=== PATIENT | female | born 1960 | race American Indian/Alaskan Native ===

== ENCOUNTER 2016-12-20 12:08 | Inpatient (IN) | payer OTHER ==
[2016-12-20] MEDS ORDERED: TYLENOL ONE (12:24)
[2016-12-20] MEDS ORDERED: TYLENOL PO ONE (12:27)
[2016-12-20 14:23] LABS: Basophils % (Auto) 0.4 % (0.0-1.8); Eosinophils % (Auto) 0.1 % (0.0-4.3); Hematocrit 40.2 % (30.3-42.9); Hemoglobin 13.1 gm/dl (10.1-14.3); Mean Corpuscular HGB Conc 33 % (30-34); Mean Corpuscular Hemoglobin 30 pg (28-32); Mean Corpuscular Volume 92 fl (79-97); Platelet Count 380 K/mm3 (140-440); Red Blood Count 4.37 M/mm3 (3.65-5.03); Red Cell Distribution Width 13.6 % (13.2-15.2); White Blood Count 13.9 K/mm3 (4.5-11.0)
[2016-12-20 14:46] LABS: Bilirubin,Urine NEG (Negative); Blood,Urine NEG (Negative); Ketones,Urine TR mg/dL (Negative); Leukocyte Esterase,Urine NEG (Negative); Mucus,Urine FEW /HPF; Nitrite,Urine NEG (Negative); Protein,Urine <15 mg/dL mg/dL (Negative); Urobilinogen,Urine < 2.0 mg/dL (<2.0)
[2016-12-20 16:14] LABS: Alanine Aminotransferase 34 units/L (7-56); Albumin 4.5 g/dL (3.9-5); Albumin/Globulin Ratio 1.3 %; Alkaline Phosphatase 112 units/L (35-129); Anion Gap 18 mmol/L; BUN/Creatinine Ratio 12.85; Bilirubin,Total 0.5 mg/dL (0.1-1.2); Blood Urea Nitrogen 9 mg/dL (7-17); Carbon Dioxide 27 mmol/L (22-30); Chloride 98.3 mmol/L (98-107); Glucose 185 mg/dL (65-100); Lipase 15 units/L (13-60); Potassium 4.4 mmol/L (3.6-5.0); Sodium 139 mmol/L (137-145); Total Protein 7.9 g/dL (6.3-8.2)
[2016-12-20] MEDS ORDERED: ZOFRAN ODT ONE (17:29)
[2016-12-20] MEDS ORDERED: ZOFRAN ODT PO ONE (17:34)
[2016-12-20] MEDS ORDERED: NACL 0.9% 1000 ML 1,000 ML IV ONE (23:11)
[2016-12-20] MEDS ORDERED: MORPHINE IV ONE (23:11)
[2016-12-20] MEDS ORDERED: ZOFRAN IV ONE (23:11)
--- NOTE | 2016-12-20 23:40 | Emergency Department Report ---
ED Abdominal Pain HPI - General Chief Complaint: Abdominal Pain Stated Complaint: ABD PAIN Time Seen by Provider: 12/20/16 23:02 Source: patient Mode of arrival: Ambulatory Limitations: No Limitations - History of Present Illness Initial Comments: 56 yo female with a past medical history of asthma, diabetes, previous hysterectomy, appendectomy, and vessel injury during laparoscopic surgery presents to the hospital complaints of abdominal pain since this morning. Pain is across the mid abdomen, intubating, squeezing in nature. Worse palpation pain alleviating factors. 3 to 4 episodes of vomiting today. No diarrhea, melena, hematochezia, or hematemesis. No complaints of fever, dysuria, or hematuria. Severity scale (0 -10): 9 - Related Data Home Medications Medication Instructions Recorded Confirmed Last Taken No Known Home Medications [No 12/20/16 12/20/16 Unknown Reported Home Medications] Allergies Allergy/AdvReac Type Severity Reaction Status Date / Time acetaminophen [From Percocet] Allergy Hives Verified 12/20/16 12:21 amoxicillin trihydrate Allergy Hives Verified 12/20/16 12:21 [From Augmentin] aspirin [From Percodan] Allergy Hives Verified 12/20/16 12:21 oxycodone HCl [From Percocet] Allergy Hives Verified 12/20/16 12:21 oxycodone terephthalate Allergy Hives Verified 12/20/16 12:21 [From Percodan] potassium clavulanate Allergy Hives Verified 12/20/16 12:21 [From Augmentin] ED Review of Systems ROS: Stated complaint: ABD PAIN Other details as noted in HPI Comment: All other systems reviewed and negative Other: Constitutional: No fevers chills Eyes: No eye pain visual changes ENT: No ear pain or throat pain Neck: Denies pain Respiratory: Denies cough wheezing shortness of breath a Cardiovascular: Denies chest pain, palpitations, syncope GI: as per hpi : Denies dysuria, urinary frequency, or urgency Musculoskeletal: Denies back pain, joint swelling Skin: Denies rash, lesions, erythema Neurologic: Denies headache, numbness, weakness Psychiatric: Denies suicidal ideation, hallucinations ED Past Medical Hx - Past Medical History Hx Diabetes: Yes Hx Asthma: Yes (never intubated or hospitalized) - Surgical History Additional Surgical History: Right shoulder surgery 02/2013. Hysterectomy. SINUS SURGERY - Social History Smoking Status: Never Smoker Substance Use Type: None - Medications Home Medications: Home Medications Medication Instructions Recorded Confirmed Last Taken Type No Known Home Medications [No 12/20/16 12/20/16 Unknown History Reported Home Medications] ED Physical Exam - General Limitations: No Limitations - Other Other exam information: General: No limitations, patient is alert in no acute distress Head exam: Atraumatic, normocephalic Eyes exam: Normal appearance, pupils equal reactive to light, extraocular movements intact ENT: Moist mucous membrane, normal oropharynx Neck exam: Normal inspection, full range of motion, no meningismus nontender Respiratory exam: Clear to auscultation bilateral, no wheezes, rales, crackles Cardiovascular: Normal rate and rhythm, normal heart sounds Abdomen: Soft, nondistended, midabdominal tenderness over pain is greatest at the left lower quadrant. Normal bowel sounds. No rebound or guarding. Abdominal scars from previous surgery noted Extremity: Full range of motion normal inspection no deformity Back: Normal Inspection, full range of motion, no tenderness Neurologic: Alert, oriented x3, cranial nerves intact, no motor or sensory deficit Psychiatric: normal affect, normal mood Skin: Warm, dry, intact ED Course Vital Signs 12/20/16 12/20/16 12/20/16 12:23 12:30 13:30 Temperature 98.0 F Pulse Rate 52 L Respiratory 19 20 17 Rate Blood Pressure 175/71 O2 Sat by Pulse 100 Oximetry 12/20/16 12/21/16 17:27 00:00 Temperature 98.3 F Pulse Rate 62 Respiratory 17 20 Rate Blood Pressure 158/83 O2 Sat by Pulse 98 Oximetry - Reevaluation(s) Reevaluation #1: 12/21/16 00:48 Morphine, Zofran, and normal saline given in ED Reevaluation #2: 12/21/16 02:25 pain improved in the ed with treatment - Consultations Consultation #1: 12/21/16 02:[address] Montenegro consults it and recommended admission, observation, abx, surgery consult Surgeon Dr. Carlos consulted and will evaluate patient ED Medical Decision Making - Lab Data Result diagrams: 12/20/16 14:14 12/20/16 14:14 Lab Results 12/20/16 12/20/16 12/20/16 Range/Units 14:14 14:14 14:32 WBC 13.9 H (4.5-11.0) K/mm3 RBC 4.37 (3.65-5.03) M/mm3 Hgb 13.1 (10.1-14.3) gm/dl Hct 40.2 (30.3-42.9) % MCV 92 (79-97) fl MCH 30 (28-32) pg MCHC 33 (30-34) % RDW 13.6 (13.2-15.2) % Plt Count 380 (140-440) K/mm3 Lymph % (Auto) 13.7 (13.4-35.0) % [place] % (Auto) 5.6 (0.0-7.3) % Eos % (Auto) 0.1 (0.0-4.3) % Baso % (Auto) 0.4 (0.0-1.8) % Lymph # 1.9 (1.2-5.4) K/mm3 [place] # 0.8 (0.0-0.8) K/mm3 Eos # 0.0 (0.0-0.4) K/mm3 Baso # 0.1 (0.0-0.1) K/mm3 Seg Neutrophils % 80.2 H (40.0-70.0) % Seg Neutrophils # 11.2 H (1.8-7.7) K/mm3 Sodium 139 (137-145) mmol/L Potassium 4.4 (3.6-5.0) mmol/L Chloride 98.3 (98-107) mmol/L Carbon Dioxide 27 (22-30) mmol/L Anion Gap 18 mmol/L BUN 9 (7-17) mg/dL Creatinine 0.7 (0.7-1.2) mg/dL Estimated GFR > 60 ml/min BUN/Creatinine Ratio 12.85 % Glucose 185 H (65-100) mg/dL Calcium 10.0 (8.4-10.2) mg/dL Total Bilirubin 0.5 (0.1-1.2) mg/dL AST 20 (5-40) units/L ALT 34 (7-56) units/L Alkaline Phosphatase 112 (35-129) units/L Total Protein 7.9 (6.3-8.2) g/dL Albumin 4.5 (3.9-5) g/dL Albumin/Globulin Ratio 1.3 % Lipase 15 (13-60) units/L Urine Color Yellow (Yellow) Urine Turbidity Cloudy (Clear) Urine pH 7.0 (5.0-7.0) Ur Specific [place] 1.017 (1.003-1.030) Urine Protein <15 mg/dl (Negative) mg/dL Urine Glucose (UA) Neg (Negative) mg/dL Urine Ketones Tr (Negative) mg/dL Urine Blood Neg (Negative) Urine Nitrite Neg (Negative) Urine Bilirubin Neg (Negative) Urine Urobilinogen < 2.0 (<2.0) mg/dL Ur Leukocyte Esterase Neg (Negative) Urine WBC (Auto) 1.0 (0.0-6.0) /HPF Urine RBC (Auto) 7.0 (0.0-6.0) /HPF U Epithel Cells (Auto) 2.0 (0-13.0) /HPF Amorphous Crystals 1+ Urine Mucus Few /HPF - Radiology Data Radiology results: report reviewed CT abdomen and pelvis IV contrast: Focal cluster small bowel movements and central abdomen was to initiate bowel wall thickening. Mild to moderate inflammation and a small amount of fluid in the mesenteric fat surrounding these isolated loops.. This is nonspecifically abnormal. This could indicate a focal inflammatory infectious enteritis involving a few small bowels. Mesenteric or adjacent omental fat infarction as possible. Although probably less likely I cannot exclude focal ischemia of an isloated segment of small bowel here. - Medical Decision Making Plan to admit patient to the hospital for antibiotics and further monitoring given his CT findings of possible ischemia (although less likely on the differential). - Differential Diagnosis gastritis, obstruction, pancreatitis, hepatitis, gastroparesis Critical Care Time: No Critical care attestation.: If time is entered above; I have spent that time in minutes in the direct care of this critically ill patient, excluding procedure time. ED Disposition Clinical Impression: Abdominal pain, Abnormal CT of the abdomen, Inflammation of intestines Disposition: OP ADMITTED IP TO THIS HOSP Is pt being admited?: Yes Condition: Stable Time of Disposition: 02:22 (Dr Nuñez/hosp)
--- NOTE | 2016-12-21 01:38 | Cat Scan Report ---
FINAL REPORT PROCEDURE: CT ABDOMEN PELVIS W CON TECHNIQUE: Computerized axial tomography of the abdomen and pelvis was performed after the IV injection of iodinated nonionic contrast. Oral contrast was not given HISTORY: Abdominal pain greatest in the left lower quadrant but across the abdomen. Nausea and vomiting COMPARISON: No prior studies are available for comparison. FINDINGS: Visualized lower thorax: There is minimal atelectasis in both lung bases. Liver: There is moderate diffuse fatty infiltration of the liver. There is a small 0.8 centimeter hypodense focus in the central liver seen on image 45 of series 3. This could be a small cyst but is too small to characterize and therefore remains nonspecific.. Spleen: Normal size and attenuation. Gallbladder and biliary system: Normal. Pancreas: Normal. Adrenals: Normal. Kidneys: Normal. GI tract: There is a focal cluster of a few small-bowel loops in the midline and just to the right of midline in the central abdomen near the umbilicus which demonstrate mild wall thickening. There is mild to moderate focal inflammatory stranding in the fat around these few isolated small bowel loops. A small amount of fluid in the mesentery is noted in this area. This finding is abnormal but nonspecific. It could indicate a focal inflammatory or infectious enteritis involving few isolated small bowel loops. A mesenteric or omental infarct is possible. Although less likely, a focal ischemic segment of small bowel cannot entirely be excluded. The visualized branches of the superior mesenteric artery appear patent by CT. The bowel appears unremarkable otherwise when considering lack of oral contrast. There are some surgical clips in the right lower quadrant. However I believe I do see the appendix and appears within normal limits. Vasculature: Normal. Bladder: Normal. Reproductive organs: Normal. Peritoneum: There is a tiny amount of free fluid in the dependent portion of the pelvis. There is no evidence of free air.. Musculoskeletal structures: No significant abnormality. Other: There is some mild stranding in the subcutaneous fat in the anterior right mid abdomen near the above-described abnormal small bowel loops. The significance of this is uncertain. This could be due to changes from prior abdominal wall surgery. However the findings are nonspecific and mild. IMPRESSION: 1. There is an isolated focal cluster of a few small bowel loops in the central abdomen which demonstrate mild wall thickening. There is [id number] inflammation and a small amount of fluid in the mesenteric fat surrounding these isolated loops. This is nonspecific but abnormal. This could indicate a focal inflammatory or infectious enteritis involving a few small bowel loops. A mesenteric or adjacent omental infarct is possible. Although probably less likely, I cannot entirely exclude focal ischemia of an isolated segment of small bowel here. Close follow-up recommended to make sure findings resolve. 2. Currently there is no CT evidence of abscess. However if the above findings are infectious, there is always the potential for future development of abscess. Again follow-up recommended. 3. There is a small amount of free fluid in the pelvis but there is no CT evidence of free air. 4. Mild irregularity in the right anterior abdominal wall subcutaneous fat is nonspecific but could indicate prior abdominal wall surgery. 5. Moderate fatty infiltration of liver noted
[2016-12-21] MEDS ORDERED: LEVAQUIN 750MG/150ML 750 MG/150 ML BAG IV ONE (02:20)
[2016-12-21] MEDS ORDERED: FLAGYL 500 MG/100 ML 500 MG/100 ML BAG IV SCH (03:00)
[2016-12-21] MEDS ORDERED: MILK OF MAGNESIA PO PRN (03:36)
--- NOTE | 2016-12-21 03:40 | History and Physical Report ---
History of Present Illness Date of examination: 12/21/16 History of present illness: 56-year-old man with a history of diabetes, asthma comes emergency room complaining of abdominal pain. Pain is in the mid abdomen and which she described as labor pain, started yesterday morning, intermittent in nature, lasting for 2 minutes, intensity in over 10, no radiation and she cannot identify exacerbating or relieving factors Patient denies chest pain, palpitation, shortness of breath, cough, hematochezia , dysuria, frequency, focal weakness, dysarthria, fever chills, polydipsia polyuria, hot or cold intolerance, easy bruisability, or rash or bleeding from mucosal membrane, rhinorrhea, epistaxis, earache, tinnitus, blurry vision, eye discharge, anxiety, depression. Other review of systems negative PAST SURGICAL HISTORY: CAYLA/BSO, appendectomy, sinus surgery, SOCIAL HISTORY: Denies alcohol, tobacco, drug FAMILY HISTORY: Hypertension Medications and Allergies Allergies Allergy/AdvReac Type Severity Reaction Status Date / Time acetaminophen [From Percocet] Allergy Hives Verified 12/20/16 12:21 amoxicillin trihydrate Allergy Hives Verified 12/20/16 12:21 [From Augmentin] aspirin [From Percodan] Allergy Hives Verified 12/20/16 12:21 oxycodone HCl [From Percocet] Allergy Hives Verified 12/20/16 12:21 oxycodone terephthalate Allergy Hives Verified 12/20/16 12:21 [From Percodan] potassium clavulanate Allergy Hives Verified 12/20/16 12:21 [From Augmentin] Home Medications Medication Instructions Recorded Confirmed Last Taken Type No Known Home Medications [No 12/20/16 12/20/16 Unknown History Reported Home Medications] Active Meds: Active Medications Levofloxacin/Dextrose (Levaquin 750mg/150ml) 750 mg in 150 mls @ 100 mls/hr IV ONCE ONE Stop: 12/21/16 03:49 Last Admin: 12/21/16 02:32 Dose: 100 mls/hr Exam - Physical Exam Narrative exam: Gen. appearance: Patient lying in bed, no apparent distress HEENT: Normocephalic, atraumatic, pupils equally round and reactive to light, extraocular movement intact, and no sclericterus,. No JVD or thyromegaly or nodule,neck supple, no carotid bruit ,mucous membranes moist, no exudate or erythema Heart: S1, S2, regular rate and rhythm Lungs: Clear to auscultation bilaterally, breathing comfortable Abdomen: Positive bowel sounds, nontender, nondistended, no organomegaly Extremity: No edema, cyanosis, clubbing Skin: No rash, nodules, warm, dry Neuro: Oriented 3, cranial nerves II-12 intact, speech is fluent, motor and sensory intact - Constitutional Vitals: Temp Pulse Resp BP Pulse Ox 98.3 F 62 20 158/83 98 12/20/16 17:27 12/20/16 17:27 12/21/16 00:00 12/20/16 17:27 12/20/16 17:27 Results - Labs CBC & Chem 7: 12/20/16 14:14 12/20/16 14:14 Labs: Abnormal lab results 12/20/16 12/20/16 Range/Units 14:14 14:14 WBC 13.9 H (4.5-11.0) K/mm3 Seg Neutrophils % 80.2 H (40.0-70.0) % Seg Neutrophils # 11.2 H (1.8-7.7) K/mm3 Glucose 185 H (65-100) mg/dL - Imaging and Cardiology CT scan - abdomen: report reviewed CT scan - pelvis: report reviewed Assessment and Plan Abdominal pain Abnormal CAT scan of the abdomen Diabetes type 2 Asthma, stable Admit to medicine Start IV antibiotic, Levaquin and Flagyl, IV fluid Consults surgery, GI Check fingersticks and initiate insulin sliding scale Start DVT prophylaxis
[2016-12-21] MEDS: NACL 0.9% 1000 ML 1,000 ML IV SCH ×2 (07:45→19:07)
[2016-12-21 09:41] LABS: Hematocrit 39.7 % (30.3-42.9); Hemoglobin 12.8 gm/dl (10.1-14.3); Mean Corpuscular HGB Conc 32 % (30-34); Mean Corpuscular Hemoglobin 30 pg (28-32); Mean Corpuscular Volume 92 fl (79-97); Platelet Count 350 K/mm3 (140-440); Red Blood Count 4.33 M/mm3 (3.65-5.03); Red Cell Distribution Width 13.9 % (13.2-15.2); White Blood Count 10.8 K/mm3 (4.5-11.0)
[2016-12-21 09:51] LABS: Anion Gap 18 mmol/L; BUN/Creatinine Ratio 14.28; Blood Urea Nitrogen 10 mg/dL (7-17); Calcium 9.4 mg/dL (8.4-10.2); Carbon Dioxide 26 mmol/L (22-30); Chloride 101.1 mmol/L (98-107); Glucose 138 mg/dL (65-100); Potassium 4.4 mmol/L (3.6-5.0); Sodium 141 mmol/L (137-145)
[2016-12-21] MEDS ORDERED: LOVENOX SUB-Q SCH (10:00)
--- NOTE | 2016-12-21 10:21 | Event Note ---
Date: 12/21/16 Patient with abdominal pain. Bowel obstruction versus inflammatory or infectious process. She was seen and examined. GI and Surgery consulted. keep NPO.
[2016-12-21] MEDS: PROTONIX IV SCH (10:36)
[2016-12-21] MEDS: LOVENOX SUB-Q SCH (10:37)
--- NOTE | 2016-12-21 10:37 | Consultation ---
History of Present Illness Consult date: 12/21/16 Reason for consult: abdominal pain Chief complaint: Abdominal pain. - History of present illness History of present illness: 56 years old female came to the emergency room complaining of abdominal pain with some nausea vomiting. Denies diarrhea or constipation. Last bowel movement was yesterday. Patient has history of laparoscopic hysterectomy with patient to open because of a blood vessel injury many years ago. Past History Past Medical History: hypertension Past Surgical History: appendectomy, hysterectomy Medications and Allergies Allergies Allergy/AdvReac Type Severity Reaction Status Date / Time acetaminophen [From Percocet] Allergy Hives Verified 12/20/16 12:21 amoxicillin trihydrate Allergy Hives Verified 12/20/16 12:21 [From Augmentin] aspirin [From Percodan] Allergy Hives Verified 12/20/16 12:21 oxycodone HCl [From Percocet] Allergy Hives Verified 12/20/16 12:21 oxycodone terephthalate Allergy Hives Verified 12/20/16 12:21 [From Percodan] potassium clavulanate Allergy Hives Verified 12/20/16 12:21 [From Augmentin] Home Medications Medication Instructions Recorded Confirmed Last Taken Type No Known Home Medications [No 12/20/16 12/20/16 Unknown History Reported Home Medications] Active Meds: Active Medications Enoxaparin Sodium (Lovenox) 40 mg SUB-Q QDAY@1000 [facility] Levofloxacin/Dextrose (Levaquin 750mg/150ml) 750 mg in 150 mls @ 100 mls/hr IV Q24H [facility] Metronidazole (Flagyl 500 Mg/100 Ml) 500 mg in 100 mls @ 100 mls/hr IV Q8H [facility] Sodium Chloride (Nacl 0.9% 1000 Ml) 1,000 mls @ 100 mls/hr IV DIRECT [facility] Last Admin: 12/21/16 07:45 Dose: 100 mls/hr Magnesium Hydroxide (Milk Of Magnesia) 30 ml PO Q4H PRN PRN Reason: Constipation Morphine Sulfate (Morphine) 2 mg IV Q4H PRN PRN Reason: Pain, Moderate (4-6) Ondansetron HCl (Zofran) 4 mg IV Q4H PRN PRN Reason: N/V unrelieved by Reglan Pantoprazole Sodium (Protonix) 40 mg IV QDAY [facility] Review of Systems All systems: negative (present complaint.) Exam Vital Signs Temp Pulse Resp BP Pulse Ox 98.0 F 52 L 19 175/71 100 12/20/16 12:23 12/20/16 12:23 12/20/16 12:23 12/20/16 12:23 12/20/16 12:23 - General physical appearance Positive: well developed, well nourished, no distress - Eyes Positive: PERRL - ENT Positive: normal pinna, normal nares, normal mucosa, no hearing loss, no congestion - Neck Positive: no masses, no bruits, trachea midline, no venous distension - Respiratory Positive: normal expansion, normal respiratory effort, clear to auscultation - Cardiovascular Rhythm: regular Heart Sounds: Present: S1 & S2 - Extremities Extremities: no ischemia, pulses symmetrical, No edema - Breasts Breasts: deferred - Abdomen Abdomen: Present: soft, tender (mild in the periumbilical area), bowel sounds normal. Absent: guarding Hernia: none - Genitourinary Female Genitourinary: deferred - Integumentary no rash, no growths, no abnormal pigmentation - Neurologic Neurologic: alert and oriented to time, place and person, motor strength and sensation are grossly intact - Musculoskeletal normal gait, normal posture - Psychiatric Psychiatric: appropriate mood/affect, intact judgment & insight Results - Labs 12/21/16 09:16 12/21/16 09:16 Abnormal lab results 12/21/16 Range/Units 09:16 Glucose 138 H (65-100) mg/dL Diabetes panel 12/21/16 Range/Units 09:16 Sodium 141 (137-145) mmol/L Potassium 4.4 (3.6-5.0) mmol/L Chloride 101.1 (98-107) mmol/L Carbon Dioxide 26 (22-30) mmol/L BUN 10 (7-17) mg/dL Creatinine 0.7 (0.7-1.2) mg/dL Glucose 138 H (65-100) mg/dL Calcium 9.4 (8.4-10.2) mg/dL Calcium panel 12/21/16 Range/Units 09:16 Calcium 9.4 (8.4-10.2) mg/dL Pituitary panel 12/21/16 Range/Units 09:16 Sodium 141 (137-145) mmol/L Potassium 4.4 (3.6-5.0) mmol/L Chloride 101.1 (98-107) mmol/L Carbon Dioxide 26 (22-30) mmol/L BUN 10 (7-17) mg/dL Creatinine 0.7 (0.7-1.2) mg/dL Glucose 138 H (65-100) mg/dL Calcium 9.4 (8.4-10.2) mg/dL Adrenal panel 12/21/16 Range/Units 09:16 Sodium 141 (137-145) mmol/L Potassium 4.4 (3.6-5.0) mmol/L Chloride 101.1 (98-107) mmol/L Carbon Dioxide 26 (22-30) mmol/L BUN 10 (7-17) mg/dL Creatinine 0.7 (0.7-1.2) mg/dL Glucose 138 H (65-100) mg/dL Calcium 9.4 (8.4-10.2) mg/dL - Imaging CT scan - abdomen: report reviewed, image reviewed (Reviewed with Dr. Shea. There is no evidence of ischemia. Thickening of some small bowel loops but very good enhancing off the wall.) Assessment and Plan Diagnostic impression: Inflammatory bowel disease. Recommendations: Continue with antibiotics. Bowel rest for 2-3 days. Agree with a GI consult.
[2016-12-21] MEDS: MORPHINE IV PRN ×2 (11:56→19:42)
[2016-12-21] MEDS: FLAGYL 500 MG/100 ML 500 MG/100 ML BAG IV SCH ×2 (12:00→22:01)
--- NOTE | 2016-12-21 14:42 | Consultation ---
History of Present Illness - Reason for Consult Consult date: 12/21/16 - History of Present Illness See dictated note. Past History Past Medical History: hypertension Past Surgical History: appendectomy, hysterectomy Medications and Allergies Allergies Allergy/AdvReac Type Severity Reaction Status Date / Time acetaminophen [From Percocet] Allergy Hives Verified 12/20/16 12:21 amoxicillin trihydrate Allergy Hives Verified 12/20/16 12:21 [From Augmentin] aspirin [From Percodan] Allergy Hives Verified 12/20/16 12:21 oxycodone HCl [From Percocet] Allergy Hives Verified 12/20/16 12:21 oxycodone terephthalate Allergy Hives Verified 12/20/16 12:21 [From Percodan] potassium clavulanate Allergy Hives Verified 12/20/16 12:21 [From Augmentin] Home Medications Medication Instructions Recorded Confirmed Last Taken Type No Known Home Medications [No 12/20/16 12/20/16 Unknown History Reported Home Medications] Active Meds: Active Medications Enoxaparin Sodium (Lovenox) 40 mg SUB-Q QDAY@1000 [facility] Last Admin: 12/21/16 10:37 Dose: 40 mg Levofloxacin/Dextrose (Levaquin 750mg/150ml) 750 mg in 150 mls @ 100 mls/hr IV Q24H [facility] Metronidazole (Flagyl 500 Mg/100 Ml) 500 mg in 100 mls @ 100 mls/hr IV Q8H [facility] Last Admin: 12/21/16 12:00 Dose: 100 mls/hr Sodium Chloride (Nacl 0.9% 1000 Ml) 1,000 mls @ 100 mls/hr IV DIRECT [facility] Last Admin: 12/21/16 07:45 Dose: 100 mls/hr Magnesium Hydroxide (Milk Of Magnesia) 30 ml PO Q4H PRN PRN Reason: Constipation Morphine Sulfate (Morphine) 2 mg IV Q4H PRN PRN Reason: Pain, Moderate (4-6) Last Admin: 12/21/16 11:56 Dose: 2 mg Ondansetron HCl (Zofran) 4 mg IV Q4H PRN PRN Reason: N/V unrelieved by Reglan Pantoprazole Sodium (Protonix) 40 mg IV QDAY [facility] Last Admin: 12/21/16 10:36 Dose: 40 mg Exam - Constitutional Vitals: Temp Pulse Resp BP Pulse Ox 98.8 F 62 18 174/82 97 12/21/16 08:00 12/21/16 08:00 12/21/16 08:00 12/21/16 08:00 12/21/16 08:00 Results - Labs CBC & Chem 7: 12/21/16 09:16 12/21/16 09:16 Labs: Abnormal lab results 12/21/16 Range/Units 09:16 Glucose 138 H (65-100) mg/dL Assessment and Plan Acute onset periumb pain, with CT findings of mild segmental small bowel inflammation. DDx - infectious enteritis vs IBD vs adhesion with partial obstruction. Pt improving. - if continues to do so, would adv diet and consider D/C on oral abx tomorrow, with outpatient follow up.
--- NOTE | 2016-12-21 15:45 | Consultation ---
REFERRING PHYSICIAN: Armen Fang MD REASON FOR CONSULTATION: Abdominal pain and abnormal CT scan. 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 She was in her usual state of good health until yesterday morning, when she noted acute onset of crampy periumbilical pain associated with nausea and vomiting. Symptoms progressed and she presented to the Emergency Room for evaluation. Here, she was noted to have a mildly elevated white count and CT scan showing mild small bowel wall thickening with stranding in several loops. Because of this, she was admitted for evaluation. The patient denies prior similar symptoms. She states that she usually has bowel movements, approximately every 3 days, which has been unchanged. She did have nausea and vomiting, but there was no hematemesis or hematochezia or melena. There has been no weight loss. The patient has no family history of inflammatory bowel disease. She denies any new medications or exposures. ALLERGIES: SHE HAS ALLERGIES PENICILLIN, ASPIRIN, OXYCODONE, AND POSSIBLY ACETAMINOPHEN. MEDICATIONS: At home, she is on medications. PAST MEDICAL HISTORY: She has a history of: 1. Hysterectomy years ago with some sort of vessel injury, requiring open surgery. 2. Appendectomy. 3. Diabetes. 4. Asthma. FAMILY HISTORY: Noncontributory. SOCIAL HISTORY: Negative for tobacco or ethanol usage recently. PHYSICAL EXAMINATION: GENERAL: This is middle-aged black female, lying in bed, in no apparent distress. VITAL SIGNS: Temperature is , pulse 62, blood pressure 174/82. HEENT: She is anicteric. Pupils are round and reactive. Oropharynx is clear. LUNGS: Clear by auscultation. CARDIAC: Regular with no extra heart sounds. ABDOMEN: Soft with good bowel sounds and no organomegaly. She has mild tenderness to deep palpation especially in the periumbilical region and left lower quadrant. EXTREMITIES: Reveal no edema. NEUROLOGIC: She is alert, oriented x 3 and grossly nonfocal. DATA: White count is 10.8, hemoglobin 12.8, hematocrit 39.7, MCV of 92, platelet count of 350,000. Sodium 141, potassium 4.4, chloride 101, bicarbonate 26, BUN is 10, creatinine is 0.7, glucose is 138. AST was 20, ALT 34, alkaline phosphatase 112, total bilirubin of 0.5, albumin of 4.5. CT was noted above and otherwise notable for a fatty liver. IMPRESSION: Periumbilical pain/small bowel abnormality on CT - this is most consistent with some sort of a transient infectious or toxin process, likely inflammatory bowel disease is relatively low. Mass lesion is also unlikely. Some sort of incarceration event or obstruction due to adhesions is a possibility, but the patient has improved markedly in the hospital, so that has also less likely. RECOMMENDATIONS: 1. Continue antibiotics, advance diet, and change to oral antibiotics. If she does well, she may be discharged to home with a 5-7 day course of antibiotics. 2. Subsequently, outpatient followup for possible repeat imaging to ensure resolution of symptoms. 3. If symptoms progressed, further evaluation is warranted. ROBERTS CHAPEL# [id number] HRC/STARLA
[2016-12-21] MEDS: ZOFRAN IV PRN (19:46)
[2016-12-22] MEDS: MORPHINE IV PRN ×3 (02:25→16:22)
[2016-12-22] MEDS: LEVAQUIN 750MG/150ML 750 MG/150 ML BAG IV SCH (02:27)
[2016-12-22] MEDS: ZOFRAN IV PRN ×3 (02:34→16:25)
[2016-12-22] MEDS: FLAGYL 500 MG/100 ML 500 MG/100 ML BAG IV SCH ×3 (03:52→20:58)
[2016-12-22 06:30] LABS: Basophils % (Auto) 0.2 % (0.0-1.8); Eosinophils % (Auto) 0.4 % (0.0-4.3); Hematocrit 35.8 % (30.3-42.9); Hemoglobin 11.8 gm/dl (10.1-14.3); Mean Corpuscular HGB Conc 33 % (30-34); Mean Corpuscular Hemoglobin 30 pg (28-32); Mean Corpuscular Volume 91 fl (79-97); Platelet Count 346 K/mm3 (140-440); Red Blood Count 3.93 M/mm3 (3.65-5.03); White Blood Count 8.2 K/mm3 (4.5-11.0)
[2016-12-22 06:49] LABS: Anion Gap 15 mmol/L; BUN/Creatinine Ratio 15.71; Blood Urea Nitrogen 11 mg/dL (7-17); Carbon Dioxide 26 mmol/L (22-30); Chloride 102.5 mmol/L (98-107); Glucose 130 mg/dL (65-100); Potassium 3.7 mmol/L (3.6-5.0); Sodium 140 mmol/L (137-145)
--- NOTE | 2016-12-22 08:45 | Progress Note ---
Assessment and Plan IMP: Resolving acute IBD. PLAN Per Internal medicine. Subjective Date of service: 12/22/16 Patient Reports: Positive: feels better, pain is less, flatus Objective Vital Signs - 12hr 12/22/16 12/22/16 12/22/16 00:00 02:25 07:47 Temperature 98.7 F Pulse Rate [ 58 L Right Radial] Respiratory 20 20 Rate Blood Pressure 143/80 [Right Arm] O2 Sat by Pulse 98 98 Oximetry 12/22/16 08:00 Temperature 98.1 F Pulse Rate [ 60 Right Radial] Respiratory 18 Rate Blood Pressure 154/74 [Right Arm] O2 Sat by Pulse 98 Oximetry - Abdomen soft, tender (minimal tenderness in the supraumbilical area), bowel sounds normal - Labs 12/22/16 05:33 12/22/16 05:33 Diabetes panel 12/21/16 12/22/16 Range/Units 09:16 05:33 Sodium 141 140 (137-145) mmol/L Potassium 4.4 3.7 (3.6-5.0) mmol/L Chloride 101.1 102.5 (98-107) mmol/L Carbon Dioxide 26 26 (22-30) mmol/L BUN 10 11 (7-17) mg/dL Creatinine 0.7 0.7 (0.7-1.2) mg/dL Glucose 138 H 130 H (65-100) mg/dL Calcium 9.4 9.0 (8.4-10.2) mg/dL Calcium panel 12/21/16 12/22/16 Range/Units 09:16 05:33 Calcium 9.4 9.0 (8.4-10.2) mg/dL Pituitary panel 12/21/16 12/22/16 Range/Units 09:16 05:33 Sodium 141 140 (137-145) mmol/L Potassium 4.4 3.7 (3.6-5.0) mmol/L Chloride 101.1 102.5 (98-107) mmol/L Carbon Dioxide 26 26 (22-30) mmol/L BUN 10 11 (7-17) mg/dL Creatinine 0.7 0.7 (0.7-1.2) mg/dL Glucose 138 H 130 H (65-100) mg/dL Calcium 9.4 9.0 (8.4-10.2) mg/dL Adrenal panel 12/21/16 12/22/16 Range/Units 09:16 05:33 Sodium 141 140 (137-145) mmol/L Potassium 4.4 3.7 (3.6-5.0) mmol/L Chloride 101.1 102.5 (98-107) mmol/L Carbon Dioxide 26 26 (22-30) mmol/L BUN 10 11 (7-17) mg/dL Creatinine 0.7 0.7 (0.7-1.2) mg/dL Glucose 138 H 130 H (65-100) mg/dL Calcium 9.4 9.0 (8.4-10.2) mg/dL
[2016-12-22] MEDS: NACL 0.9% 1000 ML 1,000 ML IV SCH ×2 (09:44→19:18)
[2016-12-22] MEDS: PROTONIX IV SCH (09:45)
[2016-12-22] MEDS: LOVENOX SUB-Q SCH (09:49)
--- NOTE | 2016-12-22 16:19 | Progress Note ---
Assessment and Plan Assessment and plan: Abdominal pain. CT abdomen showed multiple findings enteritis versus small bowel obstruction. Surgeon and GI evaluated the patient and I discussed case with them. Start clear liquid diet and advance as tolerated Enteritis- continue antibiotics- Levaquin and Flagyl. I discussed with GI. Patient will go home on Levaquin and follow with GI on discharge. Diabetes mellitus type II. Continue fingerstick glucose before every meal and at bedtime. Ileus. Less abdominal pain. Start clear liquid diet, advance as tolerated, DVT prophylaxis with Lovenox. Full code status Possibly discharge home tomorrow if she tolerates diet. History Interval history: Patient is 56-year-old presented with abdominal pain, Less abdominal pain, No fever Hospitalist Physical - Physical exam Narrative exam: Gen: Not in acute distress, obese HEENT: Normocephalic,atraumatic Neck :supple, no JVD Lungs: clear to auscultation bilaterally, no crackles no wheezes Heart: S1 and S2 regular, no murmurs no gallops, Abdomen: soft,mild tenderness in the lower abdomen, non-distended, normal bowel sounds Extremities: no edema, no clubbing or cyanosis Neuro: Awake alert oriented x 3, non focal - Constitutional Vitals: Temp Pulse Resp BP Pulse Ox 98.4 F 62 18 160/68 98 12/22/16 15:31 12/22/16 15:31 12/22/16 15:31 12/22/16 15:31 12/22/16 08:00 Results - Labs CBC & Chem 7: 12/22/16 05:33 12/22/16 05:33 Labs: Laboratory Last Values WBC 8.2 K/mm3 (4.5-11.0) 12/22/16 05:33 RBC 3.93 M/mm3 (3.65-5.03) 12/22/16 05:33 Hgb 11.8 gm/dl (10.1-14.3) 12/22/16 05:33 Hct 35.8 % (30.3-42.9) 12/22/16 05:33 MCV 91 fl (79-97) 12/22/16 05:33 MCH 30 pg (28-32) 12/22/16 05:33 MCHC 33 % (30-34) 12/22/16 05:33 RDW 14.0 % (13.2-15.2) 12/22/16 05:33 Plt Count 346 K/mm3 (140-440) 12/22/16 05:33 Lymph % (Auto) 31.8 % (13.4-35.0) 12/22/16 05:33 [place] % (Auto) 9.2 % (0.0-7.3) H 12/22/16 05:33 Eos % (Auto) 0.4 % (0.0-4.3) 12/22/16 05:33 Baso % (Auto) 0.2 % (0.0-1.8) 12/22/16 05:33 Lymph # 2.6 K/mm3 (1.2-5.4) 12/22/16 05:33 [place] # 0.7 K/mm3 (0.0-0.8) 12/22/16 05:33 Eos # 0.0 K/mm3 (0.0-0.4) 12/22/16 05:33 Baso # 0.0 K/mm3 (0.0-0.1) 12/22/16 05:33 Seg Neutrophils % 58.4 % (40.0-70.0) 12/22/16 05:33 Seg Neutrophils # 4.8 K/mm3 (1.8-7.7) 12/22/16 05:33 Sodium 140 mmol/L (137-145) 12/22/16 05:33 Potassium 3.7 mmol/L (3.6-5.0) 12/22/16 05:33 Chloride 102.5 mmol/L (98-107) 12/22/16 05:33 Carbon Dioxide 26 mmol/L (22-30) 12/22/16 05:33 Anion Gap 15 mmol/L 12/22/16 05:33 BUN 11 mg/dL (7-17) 12/22/16 05:33 Creatinine 0.7 mg/dL (0.7-1.2) 12/22/16 05:33 Estimated GFR > 60 ml/min 12/22/16 05:33 BUN/Creatinine Ratio 15.71 % 12/22/16 05:33 Glucose 130 mg/dL (65-100) H 12/22/16 05:33 Calcium 9.0 mg/dL (8.4-10.2) 12/22/16 05:33 Total Bilirubin 0.5 mg/dL (0.1-1.2) 12/20/16 14:14 AST 20 units/L (5-40) 12/20/16 14:14 ALT 34 units/L (7-56) 12/20/16 14:14 Alkaline Phosphatase 112 units/L (35-129) 12/20/16 14:14 Total Protein 7.9 g/dL (6.3-8.2) 12/20/16 14:14 Albumin 4.5 g/dL (3.9-5) 12/20/16 14:14 Albumin/Globulin Ratio 1.3 % 12/20/16 14:14 Lipase 15 units/L (13-60) 12/20/16 14:14 Urine Color Yellow (Yellow) 12/20/16 14:32 Urine Turbidity Cloudy (Clear) 12/20/16 14:32 Urine pH 7.0 (5.0-7.0) 12/20/16 14:32 Ur Specific [place] 1.017 (1.003-1.030) 12/20/16 14:32 Urine Protein <15 mg/dl mg/dL (Negative) 12/20/16 14:32 Urine Glucose (UA) Neg mg/dL (Negative) 12/20/16 14:32 Urine Ketones Tr mg/dL (Negative) 12/20/16 14:32 Urine Blood Neg (Negative) 12/20/16 14:32 Urine Nitrite Neg (Negative) 12/20/16 14:32 Urine Bilirubin Neg (Negative) 12/20/16 14:32 Urine Urobilinogen < 2.0 mg/dL (<2.0) 12/20/16 14:32 Ur Leukocyte Esterase Neg (Negative) 12/20/16 14:32 Urine WBC (Auto) 1.0 /HPF (0.0-6.0) 12/20/16 14:32 Urine RBC (Auto) 7.0 /HPF (0.0-6.0) 12/20/16 14:32 U Epithel Cells (Auto) 2.0 /HPF (0-13.0) 12/20/16 14:32 Amorphous Crystals 1+ 12/20/16 14:32 Urine Mucus Few /HPF 12/20/16 14:32
[2016-12-23] MEDS: MORPHINE IV PRN ×2 (00:08→20:34)
[2016-12-23] MEDS: ZOFRAN IV PRN ×2 (00:08→20:34)
[2016-12-23] MEDS: LEVAQUIN 750MG/150ML 750 MG/150 ML BAG IV SCH (01:45)
[2016-12-23] MEDS: FLAGYL 500 MG/100 ML 500 MG/100 ML BAG IV SCH ×2 (04:37→13:14)
--- NOTE | 2016-12-23 08:59 | Admit Criteria Form ---
Admission Criteria Documentation: ABDOMINAL PAIN Clinical Indications for Admission to Inpatient Care (Place 'X' for any and all applicable criteria): Admission is indicated for ANY ONE of the following(1)(2)(3)(4)(5): [X]I. Inpatient admission required rather than observation care (Also use Abdominal Pain: Observation Care, as appropriate) because of ANY ONE of the following: [X]a) Severe pain requiring acute inpatient management [X]b) Identification of etiology/finding that requires inpatient care (eg, aortic dissection, free air) [ ]c) Absent bowel sounds with complete ileus(6) [ ]d) Suspected toxic megacolon [ ]e) Severe electrolyte abnormalities requiring inpatient care [ ]f) High fever or infection requiring inpatient admission as indicated by ANY ONE of following(7)(8): [ ] i) Appropriate outpatient or observational care antimicrobial treatment unavailable, not effective, or not feasible [ ] ii) Documented bacteremia [ ] iii) Temperature > 104.9 degrees F (oral) [ ] iv) T >103.1 F (oral) or < 96.8 F(rectal) that does not respond to all emergency treatment measures [ ]g) Signs of intestinal obstruction [B] [ ]h) Hemodynamic instability [ ]i) IV fluid to replace significant ongoing losses (greater than 3 L/m2 per day) (12)(13) [ ]j) Percutaneous or open drainage (eg, abscess, biliary tract ) procedures [ ]k) Parenteral nutrition regimen that must be implemented on inpatient basis [ ]l) Other condition,treatment or monitoring requiring inpatient admission. [ ]II. Peritoneal signs present [ ]III. Surgery needed that cannot be performed on an ambulatory basis. [ ]IV. Evaluation requires patient to not eat or drink for extended period ( eg, more than 24 hours). [ ]V. Contraindications and/or Inappropriate clinical situations for Observational Care in patients with abdominal pain, when ANY ONE of the following is required: [ ]a) Thorough evaluation is required to prevent catastrophic events due to delays in diagnosing (e.g.Mesenteric ischemia) 1,3 [ ]b) Patient with severe pathology or with chronic symptoms unlikely to improve in the ED stay (3) [ ]. General contraindications and/or Inappropriate clinical situations for Observational Care in patients with abdominal pain, when ANY ONE of the following is required: [ ]a) Prediction of prolongation of LOS based on ANY ONE of the following may be considered as a contraindication for observational care 2, 3, 4, 5, 6, 7, 8, 9, 10, 11 [ ]i) Age > 65 yrs. [ ]ii) Patient arriving by ambulance [ ]iii) Patient with high acuity [ ]iv) Patient requiring vital sign monitoring [ ]v) Patient on IV medication [ ]b) Systolic blood pressures 180mmHg 3,12 [ ]c) Patient with altered mental status including delirium and other alteration of consciousness, (3) [ ]d) Patient whose discharge disposition will be to a [place] [facility] home or rehabilitation home should not be managed in Emergency Department Observation Unit. CMS rule requires 3 days hospital stay before such placement.3,13 [ ]e) Patient with failure to thrive due to broad array of etiologies 3,16,17 [ ]f) Inability to ambulate 3,14 Extended stay beyond goal length of stay may be needed for(2)(3): [ ]a) Persistent abdominal pain with suspected intra-abdominal process [ ]b) Diagnosed condition requiring continued stay (e.g., pancreatitis, complicated diverticulitis) [ ]c) Surgery (e.g., colectomy) The original [facility] content created by [employer] has been revised. The portions of the content which have been revised are identified through the use of italic text or in bold, and [facility] has neither reviewed nor approved the modified material.All other unmodified content is copyright [employer] [facility]. Please see references footnoted in the original [facility] edition 2016 Admission Criteria Met: Yes
[2016-12-23] MEDS ORDERED: DULCOLAX PR ONE (09:03)
[2016-12-23] MEDS: PROTONIX IV SCH (09:25)
[2016-12-23] MEDS: LOVENOX SUB-Q SCH (09:25)
[2016-12-23] MEDS: FLAGYL PO SCH ×2 (13:14→22:39)
--- NOTE | 2016-12-23 18:49 | Progress Note ---
Assessment and Plan 1. Small leatha inflammation - resolved. Adv diet and D/C in AM if tolerates. DDx - infectious enteritis vs IBD vs adhesion with partial obstruction. Pt improving. Subjective Date of service: 12/23/16 Interval history: Pt doing well. On clears. Minimal abd pain, if overeats. Objective - Constitutional Vitals: Vital Signs - 12hr 12/23/16 12/23/16 07:53 15:52 Temperature 97.6 F 98.0 F Pulse Rate [ 58 L 59 L Right Radial] Respiratory 18 20 Rate Blood Pressure 147/79 162/77 [Right Arm] O2 Sat by Pulse 99 Oximetry General appearance: Present: no acute distress - EENT Eyes: PERRL, EOM intact ENT: hearing intact - Respiratory Respiratory effort: normal - Gastrointestinal General gastrointestinal: Present: soft, non-tender - Labs CBC & Chem 7: 12/22/16 05:33 12/22/16 05:33
--- NOTE | 2016-12-23 19:20 | Progress Note ---
Assessment and Plan Assessment and plan: Abdominal pain. CT abdomen showed multiple findings enteritis versus small bowel obstruction. Surgeon and GI evaluated the patient and I discussed case with them. Start clear liquid diet and advance as tolerated Enteritis- continue antibiotics- Levaquin and Flagyl. I discussed with Dr. Montenegro. Patient will go home on Levaquin and Falagyl and follow with him in 3 weeks. Diabetes mellitus type II. Continue fingerstick glucose before every meal and at bedtime. Ileus vs incomplete bowel obstruction. Resolving. Less abdominal pain. Started liquid diet, now advanced to regular diet. DVT prophylaxis with Lovenox. Full code status Possibly discharge home tomorrow if she tolerates diet and has bowel movement. History Interval history: Patient is 56-year-old presented with abdominal pain, Less abdominal pain, No fever, Has not had a bowel movement yet Hospitalist Physical - Physical exam Narrative exam: Gen: Not in acute distress, obese HEENT: Normocephalic,atraumatic Neck :supple, no JVD Lungs: clear to auscultation bilaterally, no crackles no wheezes Heart: S1 and S2 regular, no murmurs no gallops, Abdomen: soft,mild tenderness in the lower abdomen, non-distended, bowel sounds present Extremities: no edema, no clubbing or cyanosis Neuro: Awake alert oriented x 3, non focal - Constitutional Vitals: Temp Pulse Resp BP Pulse Ox 98.0 F 59 L 20 162/77 99 12/23/16 15:52 12/23/16 15:52 12/23/16 15:52 12/23/16 15:52 12/23/16 07:53 General appearance: Present: no acute distress Results - Labs CBC & Chem 7: 12/22/16 05:33 12/22/16 05:33 Labs: Laboratory Last Values WBC 8.2 K/mm3 (4.5-11.0) 12/22/16 05:33 RBC 3.93 M/mm3 (3.65-5.03) 12/22/16 05:33 Hgb 11.8 gm/dl (10.1-14.3) 12/22/16 05:33 Hct 35.8 % (30.3-42.9) 12/22/16 05:33 MCV 91 fl (79-97) 12/22/16 05:33 MCH 30 pg (28-32) 12/22/16 05:33 MCHC 33 % (30-34) 12/22/16 05:33 RDW 14.0 % (13.2-15.2) 12/22/16 05:33 Plt Count 346 K/mm3 (140-440) 12/22/16 05:33 Lymph % (Auto) 31.8 % (13.4-35.0) 12/22/16 05:33 [place] % (Auto) 9.2 % (0.0-7.3) H 12/22/16 05:33 Eos % (Auto) 0.4 % (0.0-4.3) 12/22/16 05:33 Baso % (Auto) 0.2 % (0.0-1.8) 12/22/16 05:33 Lymph # 2.6 K/mm3 (1.2-5.4) 12/22/16 05:33 [place] # 0.7 K/mm3 (0.0-0.8) 12/22/16 05:33 Eos # 0.0 K/mm3 (0.0-0.4) 12/22/16 05:33 Baso # 0.0 K/mm3 (0.0-0.1) 12/22/16 05:33 Seg Neutrophils % 58.4 % (40.0-70.0) 12/22/16 05:33 Seg Neutrophils # 4.8 K/mm3 (1.8-7.7) 12/22/16 05:33 Sodium 140 mmol/L (137-145) 12/22/16 05:33 Potassium 3.7 mmol/L (3.6-5.0) 12/22/16 05:33 Chloride 102.5 mmol/L (98-107) 12/22/16 05:33 Carbon Dioxide 26 mmol/L (22-30) 12/22/16 05:33 Anion Gap 15 mmol/L 12/22/16 05:33 BUN 11 mg/dL (7-17) 12/22/16 05:33 Creatinine 0.7 mg/dL (0.7-1.2) 12/22/16 05:33 Estimated GFR > 60 ml/min 12/22/16 05:33 BUN/Creatinine Ratio 15.71 % 12/22/16 05:33 Glucose 130 mg/dL (65-100) H 12/22/16 05:33 Calcium 9.0 mg/dL (8.4-10.2) 12/22/16 05:33 Total Bilirubin 0.5 mg/dL (0.1-1.2) 12/20/16 14:14 AST 20 units/L (5-40) 12/20/16 14:14 ALT 34 units/L (7-56) 12/20/16 14:14 Alkaline Phosphatase 112 units/L (35-129) 12/20/16 14:14 Total Protein 7.9 g/dL (6.3-8.2) 12/20/16 14:14 Albumin 4.5 g/dL (3.9-5) 12/20/16 14:14 Albumin/Globulin Ratio 1.3 % 12/20/16 14:14 Lipase 15 units/L (13-60) 12/20/16 14:14 Urine Color Yellow (Yellow) 12/20/16 14:32 Urine Turbidity Cloudy (Clear) 12/20/16 14:32 Urine pH 7.0 (5.0-7.0) 12/20/16 14:32 Ur Specific [place] 1.017 (1.003-1.030) 12/20/16 14:32 Urine Protein <15 mg/dl mg/dL (Negative) 12/20/16 14:32 Urine Glucose (UA) Neg mg/dL (Negative) 12/20/16 14:32 Urine Ketones Tr mg/dL (Negative) 12/20/16 14:32 Urine Blood Neg (Negative) 12/20/16 14:32 Urine Nitrite Neg (Negative) 12/20/16 14:32 Urine Bilirubin Neg (Negative) 12/20/16 14:32 Urine Urobilinogen < 2.0 mg/dL (<2.0) 12/20/16 14:32 Ur Leukocyte Esterase Neg (Negative) 12/20/16 14:32 Urine WBC (Auto) 1.0 /HPF (0.0-6.0) 12/20/16 14:32 Urine RBC (Auto) 7.0 /HPF (0.0-6.0) 12/20/16 14:32 U Epithel Cells (Auto) 2.0 /HPF (0-13.0) 12/20/16 14:32 Amorphous Crystals 1+ 12/20/16 14:32 Urine Mucus Few /HPF 12/20/16 14:32
[2016-12-23] MEDS: NORVASC PO SCH (20:34)
[2016-12-23] MEDS ORDERED: ALUM-MAG HYDROX-SIMETH 200-200-20MG/5ML PO PRN (21:18)
[2016-12-23] MEDS ORDERED: LEVAQUIN PO SCH (22:00)
[2016-12-24] MEDS: FLAGYL PO SCH (05:28)
[2016-12-24] MEDS: NORVASC PO SCH (09:56)
[2016-12-24] MEDS: LOVENOX SUB-Q SCH (09:56)
[2016-12-24] MEDS ORDERED: PROTONIX PO SCH (10:00)
--- NOTE | 2016-12-24 10:06 | Discharge Summary ---
Providers - Providers Date of Admission: 12/21/16 03:36 Date of discharge: 12/24/16 Attending physician: PATRICIA SULLIVAN MD Primary care physician: [employer] Hospitalization Condition: Stable Disposition: DISCHARGED TO HOME OR SELFCARE Time spent for discharge: 35 mins Core Measure Documentation - Palliative Care Palliative Care/ Comfort Measures: Not Applicable - Core Measures Any of the following diagnoses?: none - VTE Discharge Requirements Deep Vein Thrombosis/Pulmonary Embolism Present on Admission: No Exam - Constitutional Vitals: Temp Pulse Resp BP Pulse Ox 98.3 F 63 18 143/69 100 12/24/16 08:00 12/24/16 08:00 12/24/16 08:00 12/24/16 09:56 12/24/16 08:00 Plan Activity: advance as tolerated, fall precautions Diet: diabetic, advance as tolerated Special Instructions: record daily BP diary, record blood sugar diary Follow up with: PRIMARY CAREMD [Primary Care Provider] - 7 Days TONEY EPPS MD [Staff Physician] - 7 Days Forms: Accompanied Note Prescriptions: amLODIPine [Norvasc] 5 mg PO QDAY #30 tablet Antacid [Alum-Mag Hydrox-Simeth [id number]/5Ml] 30 ml PO Q6HR PRN #30 oral.liqd PRN Reason: Indigestion Levofloxacin [Levaquin TAB] 750 mg PO Q24H #21 tablet metroNIDAZOLE [Flagyl TAB] 500 mg PO Q8HR #65 tablet Pantoprazole [Protonix TAB] 40 mg PO DAILY #30 tablet
[2016-12-24 12:53] VITALS: BP 144/71
== END 2016-12-24 14:00 | disposition home or self-care (01) | DRG 392 ==
LOC: ED 12:08 → 3A 12-21 03:36
PROVIDERS: ADMIT Internal Medicine; ATTEND Internal Medicine
DX: K52.9 Noninfective gastroenteritis and colitis, unspecified (principal); K56.7 Ileus, unspecified; E11.9 Type 2 diabetes mellitus without complications; K63.9 Disease of intestine, unspecified; J45.909 Unspecified asthma, uncomplicated; Z88.5 Allergy status to narcotic agent; Z88.1 Allergy status to other antibiotic agents; Z88.8 Allergy status to other drugs, medicaments and biological substances; Z90.49 Acquired absence of other specified parts of digestive tract; Z90.710 Acquired absence of both cervix and uterus; Z79.82 Long term (current) use of aspirin; Z82.49 Family history of ischemic heart disease and other diseases of the circulatory system
CPT/HCPCS: 36415; 74177; 80048; 80053; 81001; 83690; 85025; 85027; 96361; 96367; 96375; C9113; J1650; J1956; J2270; J2405; J7030; Q0162; Q9967

== ENCOUNTER 2017-03-30 15:08 | Emergency (ER) | payer OTHER ==
[2017-03-30 15:59] LABS: Bilirubin,Urine NEG (Negative); Blood,Urine NEG (Negative); Ketones,Urine NEG (Negative); Leukocyte Esterase,Urine NEG (Negative); Mucus,Urine FEW /HPF; Nitrite,Urine NEG (Negative); Protein,Urine <15 mg/dL mg/dL (Negative); Urobilinogen,Urine < 2.0 mg/dL (<2.0)
[2017-03-30 16:00] LABS: Basophils % (Auto) 0.4 % (0.0-1.8); Hemoglobin 13.6 gm/dl (10.1-14.3); Mean Corpuscular HGB Conc 33 % (30-34); Mean Corpuscular Hemoglobin 30 pg (28-32); Mean Corpuscular Volume 90 fl (79-97); Platelet Count 289 K/mm3 (140-440); Red Blood Count 4.57 M/mm3 (3.65-5.03); Red Cell Distribution Width 12.4 % (13.2-15.2); White Blood Count 4.5 K/mm3 (4.5-11.0)
[2017-03-30 16:06] LABS: Alanine Aminotransferase 35 units/L (7-56); Albumin 4.2 g/dL (3.9-5); Albumin/Globulin Ratio 1.4 %; Alkaline Phosphatase 119 units/L (35-129); Anion Gap 18 mmol/L; BUN/Creatinine Ratio 16.25; Blood Urea Nitrogen 13 mg/dL (7-17); Calcium 9.4 mg/dL (8.4-10.2); Carbon Dioxide 28 mmol/L (22-30); Glucose 397 mg/dL (65-100); Lipase 63 units/L (13-60); Potassium 4.1 mmol/L (3.6-5.0); Sodium 136 mmol/L (137-145); Total Protein 7.1 g/dL (6.3-8.2)
[2017-03-30] MEDS ORDERED: ZOFRAN IV ONE (21:44)
[2017-03-30] MEDS ORDERED: NACL 0.9% 1000 ML 1,000 ML IV ONE (21:44)
[2017-03-30] MEDS ORDERED: MORPHINE IV ONE (21:44)
[2017-03-30] MEDS ORDERED: NACL ONE (21:48)
--- NOTE | 2017-03-30 22:01 | Emergency Department Report ---
ED Abdominal Pain HPI - General Chief Complaint: Abdominal Pain Stated Complaint: ABD PAIN Time Seen by Provider: 03/30/17 21:25 Source: patient, old records reviewed Mode of arrival: Ambulatory Limitations: No Limitations - History of Present Illness Initial Comments: Chief complaint: Abdominal pain HPI: 56-year-old female with multiple past abdominal surgeries presents to the hospital complains of abdominal pain. Pain is at the mid abdomen and radiates to the suprapubic area Mode of arrival: Personal transport Source: [Patient] Began: 4 day Duration: Intermittent Context: History of previous multiple surgeries. Recent admission here in December for bowel inflammation versus inflammatory bowel disease versus obstruction (previous medical record reviewed). Patient states she has followed up since recent hospitalization and does not report any diagnosis of inflammatory bowel disease. She has not taken her diabetes medication today Quality: Sharp and pressure Severity: 8 out of 10 Improved with: Nothing Worsened with: Palpation Associated signs and symptoms: Positive nausea with vomiting. Patient reports that she's having bowel movements that are soft but not watery. No complaints of constipation. Patient has rectal pain with bowel movements. No reports of dysuria or fever. PMD: [place] Severity scale (0 -10): 8 - Related Data Previous Rx's Medication Instructions Recorded Last Taken Type Antacid [Alum-Mag Hydrox-Simeth 30 ml PO Q6HR PRN #30 oral.liqd 12/24/16 Unknown Rx [id number]/5Ml] Levofloxacin [Levaquin TAB] 750 mg PO Q24H #21 tablet 12/24/16 Unknown Rx Pantoprazole [Protonix TAB] 40 mg PO DAILY #30 tablet 12/24/16 Unknown Rx amLODIPine [Norvasc] 5 mg PO QDAY #30 tablet 12/24/16 Unknown Rx metroNIDAZOLE [Flagyl TAB] 500 mg PO Q8HR #65 tablet 12/24/16 Unknown Rx Docusate Sodium [Colace] 100 mg PO BID PRN #20 capsule 03/31/17 Unknown Rx HYDROcodone/APAP 5-325 [[place] 1 each PO Q6HR PRN #20 tablet 03/31/17 Unknown Rx 5/325] Ondansetron [Zofran Odt] 4 mg PO Q8HR PRN #20 tab.rapdis 03/31/17 Unknown Rx Allergies Allergy/AdvReac Type Severity Reaction Status Date / Time amoxicillin trihydrate Allergy Hives Verified 12/20/16 12:21 [From Augmentin] aspirin [From Percodan] Allergy Hives Verified 12/20/16 12:21 oxycodone HCl [From Percocet] Allergy Hives Verified 12/20/16 12:21 oxycodone terephthalate Allergy Hives Verified 12/20/16 12:21 [From Percodan] potassium clavulanate Allergy Hives Verified 12/20/16 12:21 [From Augmentin] ED Review of Systems ROS: Stated complaint: ABD PAIN Other details as noted in HPI Comment: All other systems reviewed and negative Other: Constitutional: No fevers chills Eyes: No eye pain visual changes ENT: No ear pain or throat pain Neck: Denies pain Respiratory: Denies cough wheezing shortness of breath Cardiovascular: Denies chest pain, palpitations, syncope GI: As per HPI : Denies dysuria Musculoskeletal: Denies back pain, joint swelling Skin: Denies rash, lesions, erythema Neurologic: Denies headache, numbness, weakness Psychiatric: Denies suicidal ideation, hallucinations ED Past Medical Hx - Past Medical History Previous Medical History?: Yes Hx Hypertension: Yes Hx Diabetes: Yes Hx Arthritis: Yes Hx Asthma: Yes - Surgical History Past Surgical History?: Yes Hx Appendectomy: Yes Additional Surgical History: Right shoulder surgery 02/2013. Hysterectomy. SINUS SURGERY. "Blood vessel injury" after laparoscopic surgery - Social History Smoking Status: Never Smoker Substance Use Type: Alcohol, Prescribed - Medications Home Medications: Home Medications Medication Instructions Recorded Confirmed Last Taken Type Antacid [Alum-Mag Hydrox-Simeth 30 ml PO Q6HR PRN #30 oral.liqd 12/24/16 Unknown Rx [id number]/5Ml] Levofloxacin [Levaquin TAB] 750 mg PO Q24H #21 tablet 12/24/16 Unknown Rx Pantoprazole [Protonix TAB] 40 mg PO DAILY #30 tablet 12/24/16 Unknown Rx amLODIPine [Norvasc] 5 mg PO QDAY #30 tablet 12/24/16 Unknown Rx metroNIDAZOLE [Flagyl TAB] 500 mg PO Q8HR #65 tablet 12/24/16 Unknown Rx Docusate Sodium [Colace] 100 mg PO BID PRN #20 capsule 03/31/17 Unknown Rx HYDROcodone/APAP 5-325 [[place] 1 each PO Q6HR PRN #20 tablet 03/31/17 Unknown Rx 5/325] Ondansetron [Zofran Odt] 4 mg PO Q8HR PRN #20 tab.rapdis 03/31/17 Unknown Rx ED Physical Exam - General Limitations: No Limitations - Other Other exam information: General: No limitations, patient is alert in no acute distress Head exam: Atraumatic, normocephalic Eyes exam: Normal appearance ENT: Moist mucous membrane, normal oropharynx Neck exam: Normal inspection, full range of motion, no meningismus nontender Respiratory exam: Clear to auscultation bilateral, no wheezes, rales, crackles Cardiovascular: Normal rate and rhythm, normal heart sounds Abdomen: Soft, nondistended, multiple mid and lower surgical scars. Tenderness to mid and lower abdomen. No rebound or guarding Extremity: Full range of motion normal inspection no deformity Back: Normal Inspection, full range of motion, no tenderness Neurologic: Alert, oriented x3, cranial nerves intact, no motor or sensory deficit Psychiatric: normal affect, normal mood Skin: Warm, dry, intact ED Course Vital Signs 03/30/17 03/30/17 03/31/17 15:11 21:27 00:30 Temperature 98.7 F 97.7 F Pulse Rate 73 68 68 Respiratory 20 18 18 Rate Blood Pressure 156/77 Blood Pressure 143/72 140/69 [Right] O2 Sat by Pulse 100 Oximetry ED Medical Decision Making - Lab Data Result diagrams: 03/30/17 15:21 03/30/17 15:21 Lab Results 03/30/17 03/30/17 03/30/17 Range/Units 15:21 15:21 15:29 WBC 4.5 (4.5-11.0) K/mm3 RBC 4.57 (3.65-5.03) M/mm3 Hgb 13.6 (10.1-14.3) gm/dl Hct 41.0 (30.3-42.9) % MCV 90 (79-97) fl MCH 30 (28-32) pg MCHC 33 (30-34) % RDW 12.4 L (13.2-15.2) % Plt Count 289 (140-440) K/mm3 Lymph % (Auto) 44.7 H (13.4-35.0) % [place] % (Auto) 11.7 H (0.0-7.3) % Eos % (Auto) 2.0 (0.0-4.3) % Baso % (Auto) 0.4 (0.0-1.8) % Lymph # 2.0 (1.2-5.4) K/mm3 [place] # 0.5 (0.0-0.8) K/mm3 Eos # 0.1 (0.0-0.4) K/mm3 Baso # 0.0 (0.0-0.1) K/mm3 Seg Neutrophils % 41.2 (40.0-70.0) % Seg Neutrophils # 1.9 (1.8-7.7) K/mm3 Sodium 136 L (137-145) mmol/L Potassium 4.1 (3.6-5.0) mmol/L Chloride 94.0 L (98-107) mmol/L Carbon Dioxide 28 (22-30) mmol/L Anion Gap 18 mmol/L BUN 13 (7-17) mg/dL Creatinine 0.8 (0.7-1.2) mg/dL Estimated GFR > 60 ml/min BUN/Creatinine Ratio 16.25 % Glucose 397 H (65-100) mg/dL POC Glucose (70-105) Calcium 9.4 (8.4-10.2) mg/dL Total Bilirubin 0.20 (0.1-1.2) mg/dL AST 17 (5-40) units/L ALT 35 (7-56) units/L Alkaline Phosphatase 119 (35-129) units/L Total Protein 7.1 (6.3-8.2) g/dL Albumin 4.2 (3.9-5) g/dL Albumin/Globulin Ratio 1.4 % Lipase 63 H (13-60) units/L Urine Color Yellow (Yellow) Urine Turbidity Clear (Clear) Urine pH 5.0 (5.0-7.0) Ur Specific [place] 1.035 H (1.003-1.030) Urine Protein <15 mg/dl (Negative) mg/dL Urine Glucose (UA) >=500 (Negative) mg/dL Urine Ketones Neg (Negative) mg/dL Urine Blood Neg (Negative) Urine Nitrite Neg (Negative) Urine Bilirubin Neg (Negative) Urine Urobilinogen < 2.0 (<2.0) mg/dL Ur Leukocyte Esterase Neg (Negative) Urine WBC (Auto) 1.0 (0.0-6.0) /HPF Urine RBC (Auto) 3.0 (0.0-6.0) /HPF U Epithel Cells (Auto) 1.0 (0-13.0) /HPF Urine Mucus Few /HPF 03/30/17 03/31/17 Range/Units 22:09 00:19 WBC (4.5-11.0) K/mm3 RBC (3.65-5.03) M/mm3 Hgb (10.1-14.3) gm/dl Hct (30.3-42.9) % MCV (79-97) fl MCH (28-32) pg MCHC (30-34) % RDW (13.2-15.2) % Plt Count (140-440) K/mm3 Lymph % (Auto) (13.4-35.0) % [place] % (Auto) (0.0-7.3) % Eos % (Auto) (0.0-4.3) % Baso % (Auto) (0.0-1.8) % Lymph # (1.2-5.4) K/mm3 [place] # (0.0-0.8) K/mm3 Eos # (0.0-0.4) K/mm3 Baso # (0.0-0.1) K/mm3 Seg Neutrophils % (40.0-70.0) % Seg Neutrophils # (1.8-7.7) K/mm3 Sodium (137-145) mmol/L Potassium (3.6-5.0) mmol/L Chloride (98-107) mmol/L Carbon Dioxide (22-30) mmol/L Anion Gap mmol/L BUN (7-17) mg/dL Creatinine (0.7-1.2) mg/dL Estimated GFR ml/min BUN/Creatinine Ratio % Glucose (65-100) mg/dL POC Glucose 419 H 165 H (70-105) Calcium (8.4-10.2) mg/dL Total Bilirubin (0.1-1.2) mg/dL AST (5-40) units/L ALT (7-56) units/L Alkaline Phosphatase (35-129) units/L Total Protein (6.3-8.2) g/dL Albumin (3.9-5) g/dL Albumin/Globulin Ratio % Lipase (13-60) units/L Urine Color (Yellow) Urine Turbidity (Clear) Urine pH (5.0-7.0) Ur Specific [place] (1.003-1.030) Urine Protein (Negative) mg/dL Urine Glucose (UA) (Negative) mg/dL Urine Ketones (Negative) mg/dL Urine Blood (Negative) Urine Nitrite (Negative) Urine Bilirubin (Negative) Urine Urobilinogen (<2.0) mg/dL Ur Leukocyte Esterase (Negative) Urine WBC (Auto) (0.0-6.0) /HPF Urine RBC (Auto) (0.0-6.0) /HPF U Epithel Cells (Auto) (0-13.0) /HPF Urine Mucus /HPF - Differential Diagnosis obstruction, gastritis, enteritis, inflammation, IBD Critical Care Time: No Critical care attestation.: If time is entered above; I have spent that time in minutes in the direct care of this critically ill patient, excluding procedure time. ED Disposition Clinical Impression: Inflammation of intestines Disposition: TO HOME OR SELFCARE Is pt being admited?: No Does the pt Need Aspirin: No Instructions: Abdominal Pain (ED) Additional Instructions: No acute infection has been identified. Portion of your intestinal wall at the distal ileum is thickened and suggestive of Crohn's disease. It is important youfollow up with a GI doctor for outpatient colonoscopy and further diagnosis of this abnormality. Take the copy of the ct report provided to your doctor for follow up. Prescriptions: Docusate Sodium [Colace] 100 mg PO BID PRN #20 capsule PRN Reason: Constipation HYDROcodone/APAP 5-325 [[place] 5/325] 1 each PO Q6HR PRN #20 tablet PRN Reason: Pain Ondansetron [Zofran Odt] 4 mg PO Q8HR PRN #20 tab.rapdis PRN Reason: Nausea And Vomiting Referrals: OTONIEL BETTS MD [Staff Physician] - 3-5 Days Time of Disposition: 00:58
--- NOTE | 2017-03-30 23:36 | Cat Scan Report ---
FINAL REPORT PROCEDURE: CT ABDOMEN PELVIS W CON TECHNIQUE: Computerized axial tomography of the abdomen and pelvis was performed after the IV injection of iodinated nonionic contrast. HISTORY: abd pain hx of previous surgeries COMPARISON: December 21, 2016 FINDINGS: Visualized lower thorax: No significant abnormality. Liver: Normal size and attenuation. Spleen: Normal size and attenuation. Gallbladder and biliary system: Normal. Pancreas: Normal. Adrenals: Normal. Kidneys: Normal. GI tract: Wall thickening of the distal small bowel in the right lower quadrant, series 3 images 137 through 150. Lymph nodes and mesentery: Normal. Vasculature: Normal. Bladder: Normal. Reproductive organs: Hysterectomy. Peritoneum: Small amount of free fluid. Musculoskeletal structures: No significant abnormality. Other: Postoperative changes of the abdominal wall. IMPRESSION: Small bowel enteritis with wall thickening of the distal ileum suggesting Crohn's disease versus infectious process.
[2017-03-31 00:30] VITALS: BP 140/69
== END 2017-03-31 01:51 | disposition home or self-care (01) ==
LOC: ED 15:08
DX: K52.9 Noninfective gastroenteritis and colitis, unspecified (principal); I10 Essential (primary) hypertension; E11.9 Type 2 diabetes mellitus without complications; J45.909 Unspecified asthma, uncomplicated
CPT/HCPCS: 36415; 74177; 80053; 81001; 82962; 83690; 85025; 96361; 96374; 96375; 99284; J2270; J2405; J7030; Q9967; J1815

== ENCOUNTER 2019-03-11 16:12 | Emergency (ER) | payer OTHER ==
[2019-03-11 16:26] VITALS: BP 165/72
--- NOTE | 2019-03-11 17:28 | Emergency Department Report ---
ED ENT HPI - General Chief complaint: Sore Throat Stated complaint: SORE THROAT PAIN Time Seen by Provider: 03/11/19 17:12 Source: patient Mode of arrival: Ambulatory Limitations: No Limitations - History of Present Illness Initial comments: This is a 58-year-old female nontoxic, well nourished in appearance, no acute signs of distress presents to the ED with c/o of sore throat. Patient describes sore throat as swallowing razer blades. Patient denies any fever, chills, headache, stiff neck, nausea, vomiting, chest pain, shortness of breath, numbnes s or tingling. Patient denies any drooling or hoarseness. Patient stated allergies to PCN and oxycodone. MD complaint: sore throat -: days(s) (2) Location: throat Severity: mild Severity scale (0 -10): 8 Quality: aching Consistency: constant Improves with: none Worsens with: swallowing Associated Symptoms: pain with swallowing, sore throat. denies: fever, cough, gum swelling, toothache, tinnitus, hearing loss, discharge from ear, rhinorrhea - Related Data Previous Rx's Medication Instructions Recorded Last Taken Type Antacid [Alum-Mag Hydrox-Simeth 30 ml PO Q6HR PRN #30 oral.liqd 12/24/16 Unknown Rx [id number]/5Ml] Pantoprazole [Protonix TAB] 40 mg PO DAILY #30 tablet 12/24/16 Unknown Rx amLODIPine [Norvasc] 5 mg PO QDAY #30 tablet 12/24/16 Unknown Rx levoFLOXacin [Levaquin TAB] 750 mg PO Q24H #21 tablet 12/24/16 Unknown Rx metroNIDAZOLE [Flagyl TAB] 500 mg PO Q8HR #65 tablet 12/24/16 Unknown Rx Docusate Sodium [Colace] 100 mg PO BID PRN #20 capsule 03/31/17 Unknown Rx HYDROcodone/APAP 5-325 [[place] 1 each PO Q6HR PRN #20 tablet 03/31/17 Unknown Rx 5/325] Ondansetron [Zofran Odt] 4 mg PO Q8HR PRN #20 tab.rapdis 03/31/17 Unknown Rx Azithromycin [Zithromax Z-DEMETRA] 250 mg PO DAILY #6 tablet 03/11/19 Unknown Rx Nystas/Diphen/Xyl Visc/Mylanta 15 ml MM Q4H PRN 5 Days ml 03/11/19 Unknown Rx [Magic Mouthwash] Allergies Allergy/AdvReac Type Severity Reaction Status Date / Time amoxicillin trihydrate Allergy Hives Verified 12/20/16 12:21 [From Augmentin] aspirin [From Percodan] Allergy Hives Verified 12/20/16 12:21 oxycodone HCl [From Percocet] Allergy Hives Verified 12/20/16 12:21 oxycodone terephthalate Allergy Hives Verified 12/20/16 12:21 [From Percodan] potassium clavulanate Allergy Hives Verified 12/20/16 12:21 [From Augmentin] ED Dental HPI - General Chief complaint: Sore Throat Stated complaint: SORE THROAT PAIN Time Seen by Provider: 03/11/19 17:12 Source: patient Mode of arrival: Ambulatory Limitations: No Limitations - Related Data Previous Rx's Medication Instructions Recorded Last Taken Type Antacid [Alum-Mag Hydrox-Simeth 30 ml PO Q6HR PRN #30 oral.liqd 12/24/16 Unknown Rx [id number]/5Ml] Pantoprazole [Protonix TAB] 40 mg PO DAILY #30 tablet 12/24/16 Unknown Rx amLODIPine [Norvasc] 5 mg PO QDAY #30 tablet 12/24/16 Unknown Rx levoFLOXacin [Levaquin TAB] 750 mg PO Q24H #21 tablet 12/24/16 Unknown Rx metroNIDAZOLE [Flagyl TAB] 500 mg PO Q8HR #65 tablet 12/24/16 Unknown Rx Docusate Sodium [Colace] 100 mg PO BID PRN #20 capsule 03/31/17 Unknown Rx HYDROcodone/APAP 5-325 [[place] 1 each PO Q6HR PRN #20 tablet 03/31/17 Unknown Rx 5/325] Ondansetron [Zofran Odt] 4 mg PO Q8HR PRN #20 tab.rapdis 03/31/17 Unknown Rx Azithromycin [Zithromax Z-DEMETRA] 250 mg PO DAILY #6 tablet 03/11/19 Unknown Rx Nystas/Diphen/Xyl Visc/Mylanta 15 ml MM Q4H PRN 5 Days ml 03/11/19 Unknown Rx [Magic Mouthwash] Allergies Allergy/AdvReac Type Severity Reaction Status Date / Time amoxicillin trihydrate Allergy Hives Verified 12/20/16 12:21 [From Augmentin] aspirin [From Percodan] Allergy Hives Verified 12/20/16 12:21 oxycodone HCl [From Percocet] Allergy Hives Verified 12/20/16 12:21 oxycodone terephthalate Allergy Hives Verified 12/20/16 12:21 [From Percodan] potassium clavulanate Allergy Hives Verified 12/20/16 12:21 [From Augmentin] ED Review of Systems ROS: Stated complaint: SORE THROAT PAIN Other details as noted in HPI Constitutional: denies: chills, fever Eyes: denies: eye pain, eye discharge, vision change ENT: throat pain. denies: ear pain Respiratory: denies: cough, shortness of breath, wheezing Cardiovascular: denies: chest pain, palpitations Endocrine: no symptoms reported Gastrointestinal: denies: abdominal pain, nausea, diarrhea Genitourinary: denies: urgency, dysuria, discharge Musculoskeletal: denies: back pain, joint swelling, arthralgia Skin: denies: rash, lesions Neurological: denies: headache, weakness, paresthesias Psychiatric: denies: anxiety, depression Hematological/Lymphatic: denies: easy bleeding, easy bruising ED Past Medical Hx - Past Medical History Hx Hypertension: Yes Hx Diabetes: Yes Hx Arthritis: Yes Hx Asthma: Yes - Surgical History Hx Appendectomy: Yes Additional Surgical History: Right shoulder surgery 02/2013. Hysterectomy. SINUS SURGERY. "Blood vessel injury" after laparoscopic surgery - Social History Smoking Status: Never Smoker Substance Use Type: None - Medications Home Medications: Home Medications Medication Instructions Recorded Confirmed Last Taken Type Antacid [Alum-Mag Hydrox-Simeth 30 ml PO Q6HR PRN #30 oral.liqd 12/24/16 Unknown Rx [id number]/5Ml] Pantoprazole [Protonix TAB] 40 mg PO DAILY #30 tablet 12/24/16 Unknown Rx amLODIPine [Norvasc] 5 mg PO QDAY #30 tablet 12/24/16 Unknown Rx levoFLOXacin [Levaquin TAB] 750 mg PO Q24H #21 tablet 12/24/16 Unknown Rx metroNIDAZOLE [Flagyl TAB] 500 mg PO Q8HR #65 tablet 12/24/16 Unknown Rx Docusate Sodium [Colace] 100 mg PO BID PRN #20 capsule 03/31/17 Unknown Rx HYDROcodone/APAP 5-325 [[place] 1 each PO Q6HR PRN #20 tablet 03/31/17 Unknown Rx 5/325] Ondansetron [Zofran Odt] 4 mg PO Q8HR PRN #20 tab.rapdis 03/31/17 Unknown Rx Azithromycin [Zithromax Z-DEMETRA] 250 mg PO DAILY #6 tablet 03/11/19 Unknown Rx Nystas/Diphen/Xyl Visc/Mylanta 15 ml MM Q4H PRN 5 Days ml 03/11/19 Unknown Rx [Magic Mouthwash] ED Physical Exam - General Limitations: No Limitations General appearance: alert, in no apparent distress - Head Head exam: Present: atraumatic, normocephalic - Eye Eye exam: Present: normal appearance - Expanded ENT Exam Expanded Ear exam: Present: normal external inspection Mouth exam: Present: normal external inspection. Absent: drooling, trismus, muffled voice Teeth exam: Present: normal inspection Throat exam: Positive: tonsillar erythema, other (uvula midline). Negative: tonsillomegaly, tonsillar exudate, R peritonsillar mass, L peritonsillar mass - Neck Neck exam: Present: normal inspection, full ROM. Absent: tenderness, meningismus, lymphadenopathy - Extremities Exam Extremities exam: Present: normal inspection, full ROM - Back Exam Back exam: Present: normal inspection, full ROM - Neurological Exam Neurological exam: Present: alert, oriented X3 - Psychiatric Psychiatric exam: Present: normal affect, normal mood - Skin Skin exam: Present: warm, dry, intact, normal color. Absent: rash ED Course Vital Signs 03/11/19 16:25 Temperature 99.1 F Pulse Rate 81 Respiratory 18 Rate Blood Pressure 165/72 O2 Sat by Pulse 97 Oximetry - Reevaluation(s) Reevaluation #1: 03/11/19 17:25 Patient is speaking in full sentences with no signs of distress noted. ED Medical Decision Making - Medical Decision Making Patient was instructed to Follow-up with a primary care doctor in 3-5 days or if symptoms worsen and continue return to emergency room as soon as possible. At time of discharge, the patient does not seem toxic or ill in appearance. No acute signs of distress noted. Patient agrees to discharge treatment plan of care. No further questions noted by the patient. Critical care attestation.: If time is entered above; I have spent that time in minutes in the direct care of this critically ill patient, excluding procedure time. ED Disposition Clinical Impression: Pharyngitis Qualifiers: Pharyngitis/tonsillitis etiology: unspecified etiology Qualified Code(s): J02.9 - Acute pharyngitis, unspecified Disposition: TO HOME OR SELFCARE Is pt being admited?: No Does the pt Need Aspirin: No Condition: Stable Instructions: Pharyngitis (ED) Additional Instructions: Follow-up with a primary care doctor in 3-5 days or if symptoms worsen and continue return to emergency room as soon as possible. Prescriptions: Nystas/Diphen/Xyl Visc/Mylanta [Magic Mouthwash] 15 ml MM Q4H PRN 5 Days ml PRN Reason: sore throat Azithromycin [Zithromax Z-DEMETRA] 250 mg PO DAILY #6 tablet Referrals: PRIMARY CAREMD [Referring] - 3-5 Days AMY SERRANO MD [Staff Physician] - 3-5 Days [facility] [Outside] - 3-5 Days [facility] [Outside] - 3-5 Days Forms: Work/School Release Form(ED)
== END 2019-03-11 17:35 | disposition home or self-care (01) ==
LOC: ED 16:12
DX: J02.9 Acute pharyngitis, unspecified (principal); I10 Essential (primary) hypertension; E11.9 Type 2 diabetes mellitus without complications; M19.90 Unspecified osteoarthritis, unspecified site; J45.909 Unspecified asthma, uncomplicated; Z90.710 Acquired absence of both cervix and uterus; Z90.49 Acquired absence of other specified parts of digestive tract; Z79.899 Other long term (current) drug therapy; Z88.6 Allergy status to analgesic agent; Z88.4 Allergy status to anesthetic agent; Z88.1 Allergy status to other antibiotic agents; Z88.8 Allergy status to other drugs, medicaments and biological substances
CPT/HCPCS: 99282